=== PATIENT | male | born 2000 | race Caucasian/White ===

== ENCOUNTER 2022-07-09 20:59 | Emergency (ER) | payer OTHER ==
[~2022-07-09] VITALS: Ht 175.3 cm; Wt 76.7 kg
--- NOTE | 2022-07-10 17:51 | EKG ---
[facility] [address] [facility] [place] [address] Signed Poor data quality, interpretation may be adversely affected Normal sinus rhythm Incomplete right bundle branch block Inferior infarct , age undetermined Abnormal ECG No previous ECGs available Confirmed by THEE GARCIA MD ([id number]) on 07/10/2022 5:51:15 PM Electronically Signed By: THEE GARCIA MD 07/10/22 175 PATIENT NAME: LEELAMILADYS Electrocardiogram DATE OF : [birth year] PHYSICIAN: THEE GARCIA MD REPORT #: [id number] REPORT IS CONFIDENTIAL AND NOT TO BE RELEASED WITHOUT AUTHORIZATION
== END 2022-07-09 23:07 | disposition left against medical advice (07) ==
LOC: ED 20:59
DX: R00.2 Palpitations (principal)
CPT/HCPCS: 80053; 84443; 84484; 85025; 87502; 93005; 93010; 99285-25; U0003

== ENCOUNTER 2022-10-28 17:01 | Emergency (ER) | payer MEDICAID ==
[~2022-10-28] VITALS: Ht 175.3 cm; Wt 72.6 kg
--- NOTE | 2022-10-30 17:19 | EKG ---
[facility] [address] [facility] [place] [address] Signed Wide QRS tachycardia Right bundle branch block Abnormal ECG Confirmed by Ky Bone MD () on 10/30/2022 5:19:07 PM Electronically Signed By: KY BONE MD 10/30/22 1719 PATIENT NAME: MILADYS SWENSON Electrocardiogram DATE OF : [birth year] PHYSICIAN: KY BONE MD REPORT #: [id number] REPORT IS CONFIDENTIAL AND NOT TO BE RELEASED WITHOUT AUTHORIZATION
--- NOTE | 2022-10-30 17:20 | EKG ---
[facility] [address] [place] [address] Signed Normal sinus rhythm Normal ECG When compared with ECG of 28-OCT-2022 17:05, (Unconfirmed) Sinus rhythm has replaced Wide QRS tachycardia Vent. rate has decreased BY 127 BPM Confirmed by Ky Bone MD () on 10/30/2022 5:20:05 PM Electronically Signed By: KY BONE MD 10/30/22 1720 PATIENT NAME: MILADYS SWENSON Electrocardiogram DATE OF : [birth year] PHYSICIAN: KY BONE MD REPORT #: [id number] REPORT IS CONFIDENTIAL AND NOT TO BE RELEASED WITHOUT AUTHORIZATION
== END 2022-10-28 18:27 | disposition home or self-care (01) ==
LOC: ED 17:01
DX: I47.1 Supraventricular tachycardia (principal)
CPT/HCPCS: 36415; 80053; 85025; 93005; 93010; 96374; 99285-25; J0153

== ENCOUNTER 2024-05-02 07:40 | Emergency (ER) | payer BC, OTHER ==
[~2024-05-02] VITALS: Ht 175.3 cm; Wt 90.1 kg
[2024-05-02] MEDS ORDERED: ASPIRIN 81 MG CHEW PO ONE (08:00)
[2024-05-02] MEDS ORDERED: KETOROLAC TROMETHAMINE 30 MG/ML VIAL IV ONE (08:00)
[2024-05-02] MEDS ORDERED: SODIUM CHLORIDE 0.9% 1,000 ML IV PRN (08:00)
[2024-05-02 08:06] LABS: BASOPHILS 0.8 % (0-2); HEMOGLOBIN 16.2 g/dL (12.0-18.0); LYMPHOCYTES 34.5 % (24-44); MCH 31.6 (27-36); MCHC 35.9 g/dl (30-36); MCV 87.9 fl (81-99); MONOCYTES 7.6 % (0-12); NEUTROPHILS 56.1 % (39-80); PLATELET COUNT 204 K/uL (140-440); RBC 5.12 M/ul (4.3-5.7)
[2024-05-02 08:17] LABS: INR 1.03 (0.80-1.30); PROTIME 12.8 Sec (11.2-14.2)
[2024-05-02 08:33] LABS: ALBUMIN 3.7 g/dL (3.4-5.0); ALBUMIN/GLOBULIN RATIO 1.12 (1.1-2.4); ANION GAP 10.7 (7-21); BILIRUBIN, TOTAL 0.8 ng/dL (0.2-1.0); BUN/CREATININE RATIO 12.5 (6.0-28.6); CREATININE, SERUM 1.2 mg/dL (0.70-1.30); MAGNESIUM 1.9 mg/dL (1.8-2.4); POTASSIUM 3.7 mmol/L (3.5-5.1)
[2024-05-02] MEDS ORDERED: KETOROLAC TROME10 MG PO (09:34)
[2024-05-02 09:42] VITALS: BP 112/83
--- NOTE | 2024-05-03 18:40 | EKG ---
[facility] [address] [facility] [place] [address] Signed Normal sinus rhythm Nonspecific T wave abnormality Abnormal ECG When compared with ECG of 28-OCT-2022 17:28, Nonspecific T wave abnormality now evident in Anterior leads Confirmed by Gennaro Orozco MD ([id number]) on 05/03/2024 6:40:40 PM Electronically Signed By: GENNARO OROZCO MD 05/03/24 1840 PATIENT NAME: LEELAMILADYS Electrocardiogram DATE OF : [birth year] PHYSICIAN: GENNARO OROZCO MD REPORT #: [id number] REPORT IS CONFIDENTIAL AND NOT TO BE RELEASED WITHOUT AUTHORIZATION
== END 2024-05-02 09:40 | disposition home or self-care (01) ==
LOC: ED 07:40
PROVIDERS: Emergency Medicine
DX: R06.02 Shortness of breath (principal); R07.89 Other chest pain
CPT/HCPCS: 36415; 71045; 71260; 80053; 83735; 83880; 84484; 85025; 85610; 85730; 93005; 93010; 99285-25; A9270; J1885; J7030; Q9967

== ENCOUNTER 2025-04-19 10:37 | Emergency (ER) | payer BC, OTHER ==
[~2025-04-19] VITALS: Ht 175.3 cm; Wt 90.9 kg
[~2025-04-19 10:37] MED LIST: KETOROLAC TROME10 MG PO
[2025-04-19] MEDS ORDERED: AMOX TR-K CLV1 EAC1 PO (11:07)
[2025-04-19] MEDS ORDERED: DIPHTH,PERTUSS(ACELL),TET VAC 0.5 ML SYRINGE IM ONE (11:15)
[2025-04-19 11:42] VITALS: BP 133/74
== END 2025-04-19 11:44 | disposition home or self-care (01) ==
LOC: ED 10:37
DX: S61.452A Open bite of left hand, initial encounter (principal); W55.01XA Bitten by cat, initial encounter
CPT/HCPCS: 90471; 90715; 99283-25